=== PATIENT | female | born 1970 | race Caucasian/White ===

== ENCOUNTER 2024-03-31 07:08 | Outpatient (CLI) | payer OTHER, SELFPAY ==
--- NOTE | ~2024-03-31 | MM_ITS ---
EXAMINATION: MM screening shama BI w robles HISTORY: Screening TECHNIQUE: Craniocaudal and mediolateral oblique 3-D tomosynthesis images were obtained and synthetic 2-D images were generated. CAD analysis was submitted and interpreted. COMPARISON: 08/29/2016 BREAST PARENCHYMAL COMPOSITION: Dense: The breasts are extremely dense, which lowers the sensitivity of mammography. FINDINGS: There are developing bilateral breast asymmetries. There are no suspicious calcifications i n either breast. IMPRESSION: 1. Developing bilateral breast asymmetries. 2. Additional mammographic views and possible breast ultrasound are recommended. BI-RADS Category 0: Incomplete: Needs additional imaging evaluation. Reviewed, dictated and finalized at location A. IMPRESSION: 1. Developing bilateral breast asymmetries. 2. Additional mammographic views and possible breast ultrasound are recommended . BI-RADS Category 0: Incomplete: Needs additional imaging evaluation.
== END 2024-03-31 07:09 ==
PROVIDERS: PCP Family Medicine
DX: Z12.31 Encounter for screening mammogram for malignant neoplasm of breast (principal); N64.89 Other specified disorders of breast
CPT/HCPCS: 77063; 77067

== ENCOUNTER 2024-05-06 09:46 | Outpatient (CLI) | payer OTHER, SELFPAY ==
--- NOTE | ~2024-05-06 | MM_ITS ---
EXAMINATION: MM diagnostic shama BI w robles HISTORY: Bilateral nodular asymmetries TECHNIQUE: Additional 3-D tomosynthesis spot compression images of the bilateral breasts were perform ed and synthetic 2-D images were generated. CAD analysis was submitted and interpreted. COMPARISON: 03/31/2024 and 08/29/2016 FINDINGS: Breast parenchyma is extremely dense, which lowers the sensitivity of mammography. Bilateral areas of nodular asymmetry demonstrate effacement with spot compression. No persistent mass lesion or distortion seen. No suspicious microcalcifications. IMPRESSION: No mammographic evidence for malignancy. BI-RADS Category 1: Negative Reviewed, dictated and finalized at location .
== END 2024-05-06 09:47 ==
LOC: MICIMG 09:47
PROVIDERS: PCP Family Medicine; Visit Provider Nurse Practitioner
DX: N63.10 Unspecified lump in the right breast, unspecified quadrant (principal); N64.89 Other specified disorders of breast
CPT/HCPCS: 77062; 77066; G0279

== ENCOUNTER 2024-08-26 08:21 | Emergency (ER) | payer BC, SELFPAY ==
--- NOTE | ~2024-08-26 | CT_ITS ---
EXAMINATION: CT brain wo con DATE: 08/26/2024 09:31 INDICATION: Head trauma with concussion symptoms TECHNIQUE: Computed tomography (CT) of the head was performed without intravenous contrast. Sagittal and coronal reconstructions were performed. The mA was adjusted according to patient size. Iterative reconstruction technique was employed. The dose-length product was 605.33 mGy-cm. COMPARISON: None FINDINGS: No fracture. No acute intracranial hemorrhage, acute infarction or abnormal extra axial fluid collect ion. Ventricles are normal and symmetric. No mass/mass effect. The orbits, paranasal sinuses and mast oid air cells are normal. IMPRESSION: 1. Normal head CT. No fracture or acute intracranial process. Reviewed, dictated and finalized at location A.
--- NOTE | ~2024-08-26 | XR_ITS ---
Right Knee Technique: AP, lateral, and sunrise views were obtained. Clinical History: Pain Findings: No fracture or dislocation is seen. Osseous alignment is anatomic. There is mild tricompart mental spurring. Soft tissues are unremarkable. Probable small joint effusion is seen. Impression: Mild tricompartmental spurring. Probable small joint effusion. Reviewed, dictated and finalized at [facility]. Impression: Mild tricompartmental spurring. Probable small joint effusion.
--- NOTE | ~2024-08-26 | CT_ITS ---
EXAMINATION: 1. CT facial & cervical spine wo DATE: 08/26/2024 09:31 INDICATION: Head trauma post fall TECHNIQUE: 1. Computed tomography (CT) of the maxillofacial region and of the cervical spine were performed with out intravenous contrast. Sagittal and coronal reconstructions of both regions were obtained. Automat ed exposure control and iterative reconstruction technique were employed. The dose-length product was 294.00 mGy-cm. COMPARISON: None. FINDINGS: Maxillofacial CT: No maxillofacial fractures. Specifically the nasal bones, zygomatic arches, mandible and espinoza of the orbits and paranasal sinuses are all intact. Orbits are normal. There is rightward deviation of the nasal septum which parallels the contours of the turbinates with no fracture. No mucosal thickening i n the paranasal sinuses. Mastoid air cells and middle ear cavities are clear. Facial soft tissues are unremarkable. Cervical spine CT: C5-C6 and C6-7 discectomies with prosthetic disc prosthetic disc placement and associated straighteni ng of the normal lower cervical lordosis. Otherwise normal alignment. Vertebral body heights are norm al. No acute fracture. Mild disc height loss at C2-C3 and C3-C4 as well as at T2-T3 through T4-T5. No central canal stenosis. There is bilateral multilevel moderate cervical facet osteoarthritis. Also m ild to moderate uncovertebral osteoarthritis greatest at C5-C6 and C6-C7. There is associated mild bi lateral neural foraminal stenosis at C6-C7. Sclerotic lesion at the junction of the left transverse p rocess and superior and intra-articular processes of T1 with ring and arc-like configuration of the c alcification favoring either an enchondroma or thickened trabecula within a hemangioma. Visualized po rtion of the upper lungs are clear. Goiter with 3.8 cm right thyroid mass which extends into the thor ax. Cervical soft tissues are otherwise unremarkable. IMPRESSION: 1. No maxillofacial fractures. 2. Mild cervical spondylosis with prosthetic discs at C5-C6 and C6-C7. No acute osseous abnormality. 3. Goiter with intrathoracic extension of a 3.8 cm right thyroid mass. Consider thyroid ultrasound fo r risk stratification. Reviewed, dictated and finalized at location A. IMPRESSION: 1. No maxillofacial fractures. 2. Mild cervical spondylosis with prosthetic discs at C5-C6 and C6-C7. No acute osseous abnormality. 3. Goiter with intrathoracic extension of a 3.8 cm right thyroid mass. Consider thyroid ultrasound for risk stratification.
--- NOTE | ~2024-08-26 | XR_ITS ---
Left wrist Technique: PA, oblique, lateral, and ulnar deviation views were obtained. Clinical History: Pain Findings: No acute fracture or dislocation is seen. Osseous alignment is anatomic. Joint spaces are p reserved. Soft tissues are unremarkable. Impression: Unremarkable left wrist radiographs. Reviewed, dictated and finalized at location . Impression: Unremarkable left wrist radiographs.
[2024-08-26 08:28] VITALS: BP 124/57; PULSE 87; RESP 16; TEMP 36.6; O2SAT 96
--- NOTE | 2024-08-26 09:21 | ED.FALL ---
HPI - Fall General Chief Complaint: Fall Stated Complaint: fall last noc Time Seen by Provider: 08/26/24 08:58 History of Present Illness HPI Narrative: 54-year-old female presents after sustaining a same level fall last night. Patient states she was caring a box and tripped on a driveway and fell face 1st. Patient states she hit her chin on the concrete. Patient states she saw stars after hitting head with denies loss of consciousness. Patient states she has had nausea and lightheadedness today. Patient also complaining of neck pain. 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 Patient also complaining of left wrist pain with decreased range of motion. Patient also complaining of right knee pain with decreased range of motion. Patient is right-hand dominant Onset (ago): day(s) (1) Fall from: standing Fall witnessed: no Place fall occurred: home Loss of consciousness: none Symptoms prior to fall: none Related Data Allergies Allergy/AdvReac Type Severity Reaction Status Date / Time codeine Allergy Unknown Verified 05/08/23 12:29 CODEINE (Generic Allergy) Allergy Y Uncoded 05/08/23 12:29 Review of Systems Review of Systems: A 10 system review of systems was completed on the patient and is negative except for what is stated in the HPI. Nursing and ancillary documentation was reviewed. Exam Narrative: GENERAL: Well-appearing, well-nourished, and in no acute distress. HEAD: Normocephalic, abrasion to chin with point tenderness EYES: PERRLA and EOMI. ENT: Nares clear, no rhinorrhea or epistaxis. Mucous membranes moist. NECK: Supple, generalized neck pain CHEST: Clear to auscultation. No respiratory distress. HEART: Regular rate and rhythm. No murmur heard. Normal peripheral pulses. ABDOMEN: Soft, nontender, nondistended, normal active bowel sounds. EXTREMITIES: left wrist tenderness to base of left thumb with decreased rom to thumb. patient has pain with flexion and extension of left knee with bruising to left anterior knee. No edema. SKIN: Warm, dry, no rash. NEURO: No focal deficits. Alert and oriented x3. PSYCH: Normal mood and affect. Course Course Emergency Course: CT max facial, CT cervical, CT head due to concussion X-ray of left wrist and right knee Vital Signs Vital signs: Vital Signs Temperature 36.6 C 08/26/24 08:28 Pulse Rate 87 08/26/24 08:28 Respiratory Rate 16 08/26/24 08:28 Blood Pressure 124/57 L 08/26/24 08:28 Pulse Oximetry 96 08/26/24 08:28 Oxygen Delivery Room Air 08/26/24 08:28 Temperature 36.6 C 08/26/24 08:28 Pulse Rate 87 08/26/24 08:28 Respiratory Rate 16 08/26/24 08:28 Blood Pressure 124/57 L 08/26/24 08:28 Pulse Oximetry 96 08/26/24 08:28 Oxygen Delivery Room Air 08/26/24 08:28 MDM - Fall MDM Narrative Medical decision making narrative: Images negative for any fractures. Patient has a history of goiter and is scheduled for ultrasound of thyroid. Differential Diagnosis Differential diagnosis: Likely other (Contusion versus fracture) Imaging Data Radiologist's impression: Negative for any acute fractures Discharge Plan Discharge Clinical Impression: Concussion, Contusion of left wrist, Contusion of knee, right, Fall from ground level, Goiter Patient Disposition: Home, Self-Care Condition: Stable Instructions: Antibiotic Form, Concussion (ED), Contusion in Adults (ED) Additional Instructions: Apply ice 4 times a day for 20 minutes at a time Wear braces to affected area Return for worsening symptoms Follow-up/Referrals: Alba,Bhanu Brito MD [Primary Care Provider] - Time of Disposition: 10:03
[2024-08-26 10:22] VITALS: BP 132/79; PULSE 78; RESP 16; TEMP 36.8; O2SAT 99
== END 2024-08-26 10:23 | disposition home or self-care (01) ==
LOC: ANHED 10:21
PROVIDERS: Emergency Provider Nurse Practitioner Family; PCP Family Medicine
DX: S06.0X0A Concussion without loss of consciousness, initial encounter (principal); S60.212A Contusion of left wrist, initial encounter; S80.01XA Contusion of right knee, initial encounter; E04.9 Nontoxic goiter, unspecified; M47.812 Spondylosis without myelopathy or radiculopathy, cervical region; W01.0XXA Fall on same level from slipping, tripping and stumbling without subsequent striking against object, initial encounter
CPT/HCPCS: 70450; 70486; 72125; 73110; 73562; 99284